=== PATIENT | female | born 2005 | race Caucasian/White ===

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

== ENCOUNTER → 2023-03-09 | Outpatient (CLI) | payer OTHER | LOC: M CARPUL 11:47 | PROVIDERS: ATTEND Pediatrics | DX: R07.9 Chest pain, unspecified (principal) ==

== ENCOUNTER 2023-12-17 17:10 | Emergency (ER) | payer OTHER ==
[~2023-12-17] VITALS: Ht 154.9 cm; Wt 44.0 kg
[2023-12-17] MEDS ORDERED: HYDR-643 (17:15)
[2023-12-17] MEDS ORDERED: FAMO1TAB11 (17:15)
[2023-12-17] MEDS ORDERED: LARI1TAB5 (17:15)
[2023-12-17] MEDS ORDERED: FLUO40CA (17:15)
[2023-12-17 18:58] LABS: BASO % 0.4 % (0.0-1.0); EOS % 0.4 % (0.0-3.0); HEMATOCRIT 39.4 % (36.0-47.0); HEMOGLOBIN 13.7 g/dl (12.0-15.5); LYMPH # 1.5 10^3/uL (1.5-5.0); MEAN CORPUSCULAR HEMOGLOBIN 31.4 pg (27.0-33.0); MEAN CORPUSCULAR HGB CONC 34.8 g/dl (32.0-36.5); MEAN CORPUSCULAR VOLUME 90.4 fl (80.0-96.0); MONO # 0.6 10^3/uL (0.0-0.8); MONO % 6.2 % (2.0-8.0); NEUTROPHILS # 6.8 10^3/uL (1.5-8.5); NEUTROPHILS % 75.6 % (36.0-66.0); PLATELET COUNT, AUTOMATED 219 10^3/uL (150-450); RED BLOOD COUNT 4.36 10^6/uL (4.00-5.40)
[2023-12-17] MEDS: ONDANSETRON 4MG 2ML VIAL IV ONE (19:12)
[2023-12-17] MEDS: NS 1,000 ML IV ONE (19:12)
[2023-12-17 19:26] LABS: LIPASE 23 U/L (12-53)
[2023-12-17 19:28] LABS: ALBUMIN 3.7 G/DL (3.2-5.2); ALKALINE PHOSPHATASE 31 U/L (46-116); ALT/SGPT 27 U/L (7.0-40); AST/SGOT 18 U/L (<34); BILIRUBIN,DIRECT 0.2 MG/DL (<0.4); BILIRUBIN,TOTAL 0.6 MG/DL (0.3-1.2); BLOOD UREA NITROGEN 17 MG/DL (9-23); CALCIUM LEVEL 9.1 MG/DL (8.5-10.1); CARBON DIOXIDE LEVEL 25 MMOL/L (20-31); CHLORIDE LEVEL 105 MMOL/L (98-107); CREATININE FOR GFR 0.84 MG/DL (0.55-1.30); GLUCOSE, FASTING 80 MG/DL (60-100); POTASSIUM SERUM 4.3 MMOL/L (3.5-5.1); SODIUM LEVEL 139 MMOL/L (136-145); TOTAL PROTEIN 6.8 G/DL (5.7-8.2)
[2023-12-17 19:34] LABS: HCG, SERUM QUALITATIVE NEGATIVE (NEGATIVE)
[2023-12-17] MEDS ORDERED: ISOVUE-370 76% 100ML VIAL As Ordered ONE (20:00)
[2023-12-17] MEDS ORDERED: ONDA4TAB6 PO (20:41)
[2023-12-17 20:51] VITALS: BP 122/68; TEMP 96.4; O2SAT 94
== END 2023-12-17 20:52 | disposition home or self-care (01) ==
LOC: M ED 17:10
DX: R10.13 Epigastric pain (principal); R11.2 Nausea with vomiting, unspecified; V49.40XA Driver injured in collision with unspecified motor vehicles in traffic accident, initial encounter; Y92.9 Unspecified place or not applicable; Y93.9 Activity, unspecified; Y99.9 Unspecified external cause status; Z79.899 Other long term (current) drug therapy
CPT/HCPCS: 74177; 80048; 80076; 83690; 84703; 85025; 96361; 96374; 99284; J2405; Q9967